=== PATIENT | male | born 2000 | race Caucasian/White ===

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

== ENCOUNTER → 2022-09-24 09:40 | Outpatient (BNVA) | payer MEDICAID, SELFPAY | PROVIDERS: Visit Provider Internal Medicine | DX: E10.65 Type 1 diabetes mellitus with hyperglycemia (principal); E11.10 Type 2 diabetes mellitus with ketoacidosis without coma; E03.9 Hypothyroidism, unspecified | CPT/HCPCS: 36415; 80053; 80061; 82044; 83036; 84439; 84443; 84480 ==

== ENCOUNTER → 2023-06-14 08:25 | Outpatient (BNVA) | payer MEDICAID, SELFPAY | PROVIDERS: Visit Provider Internal Medicine | DX: E03.9 Hypothyroidism, unspecified (principal); E10.10 Type 1 diabetes mellitus with ketoacidosis without coma; R74.01 Elevation of levels of liver transaminase levels; Z79.4 Long term (current) use of insulin; Z79.890 Hormone replacement therapy | CPT/HCPCS: 36415; 80053; 80061; 82044; 83036; 84439; 84443; 99214 ==

== ENCOUNTER 2023-06-26 12:22 | Emergency (ER) | payer MEDICAID, SELFPAY ==
[2023-06-26] VITALS (53 sets, daily range): BP systolic 111–122; BP diastolic 62–91; PULSE 76–109; RESP 7–24; TEMP 36.5; O2SAT 94–99; BMI 22.9
--- NOTE | 2023-06-26 12:17 | XRR_ITS ---
PROCEDURE INFORMATION: Exam: XR Chest Exam date and time: 06/26/2023 12:23 PM Age: 22 years old Clinical indication: Cough and dyspnea; Additional info: Dyspnea/cough TECHNIQUE: Imaging protocol: Radiologic exam of the chest. Views: 1 view. COMPARISON: CR XR chest 1V portable [id number] 05/19/2021 1:02 PM FINDINGS: Lungs: Unremarkable. No consolidation. Pleural spaces: Unremarkable. No pleural effusion. No pneumothorax. Heart/Mediastinum: Unremarkable. No cardiomegaly. Bones/joints: Unremarkable. XR/XR chest 1V portable [id number] IMPRESSION: No acute findings.
--- NOTE | 2023-06-26 12:17 | ECG_ITS ---
[facility] Test Date: 2023-06-26 Pat Name: Mukul Bean Department: Room: Gender: Male Credit Collections Manager: : 2000 Requested By: Aneudy Mtz Order Number: [id number] Demetrius MD: Prashant Gonzalez M.D. Measurements Intervals Emblem Rate: 87 P: 67 TX: 145 QRS: 61 QRSD: 92 T: 3 QT: 364 QTc: 440 Interpretive Statements SINUS RHYTHM POSSIBLE LEFT ATRIAL ENLARGEMENT [-0.1mV P-WAVE IN V1/V2] No previous ECG available for comparison Electronically Signed On 06-26-2023 13:56:58 WIRELESS SALES REPRESENTATIVE by Prashant Gonzalez M.D. [id number]
[2023-06-26 12:22] LABS: Glucose Point of Care 476 mg/dL (70-110)
[2023-06-26] MEDS: sodium chloride 0.9% 1,000 ML 999 ML IV ×2 (12:26→13:44)
[2023-06-26 12:33] LABS: Basophils % 0.7 %; Eosinophils % 0.7 %; Hematocrit 40.9 % (37-53); Lymphocytes # 1.6 10^3/uL (1.5-6.5); Lymphocytes % 39.9 %; Mean Corpuscular HGB Conc 35.9 g/dL (30-55); Mean Corpuscular Hemoglobin 31.6 pg (27-33); Mean Platelet Volume 9.8 fL (7.4-10.4); Monocytes # 0.4 10^3/uL (0.2-0.9); Monocytes % 9.7 %; Neutrophils # 1.97 10^3/uL (1.8-8.0); Neutrophils % 48.8 %; Nucleated Red Blood Cells % 0 %; Platelet Count 325 10^3/cmm (157-399); Red Blood Count 4.65 10^6/uL (3.85-5.65); Red Cell Distribution Width 11.1 % (12.1-15.1); White Blood Count 4.04 10^3/uL (4.5-13.0)
--- NOTE | 2023-06-26 12:37 | ED_ITS ---
HPI - Recheck/Abnormal Lab/Rx 2 General: Chief Complaint: Recheck/Abnormal Lab/Rx Stated Complaint: HIGH BLOOD SUGAR Source: patient Mode of arrival: EMS History of Present Illness: 22-year-old male presents to the emergen cy room with complaint of shortness of breath and chest discomfort. Patient was at work he has a markedly elevated blood sugar. He manages his blood sugar with as needed doses of NovoLog he says sometimes up to 10-12 or more per day he last took 1 this morning around 6 where he took 15 units of NovoLog Associated symptoms: none Review of Systems 2 Const: Denies: fever(s) or chills Card: Denies: chest pain Resp: Denies: dyspnea GI: Denies: abdominal pain : Denies: dysuria, urinary frequency or urinary urgency Musc: Denies: neck pain or back pain Skin/Breast: Denies: rash PFSH ED 2 PFSH: Medical History Diabetes Hypothyroid Hyperlipidemia Diabetes type 1, uncontrolled Surgical History No pertinent past surgical history Family History Other CAD (coronary artery disease) Cancer Diabetes Hypertension Social History Smoking and tobacco/nicotine status: current every day tobacco/nicotine user Physical Exam 2 Const: GENERAL APPEARANCE: cooperative and comfortable O RIENTATION/CONSCIOUSNESS: Yes awake, Yes oriented to person, Yes oriented to place and Yes oriented to time HENMT: COMMON NORMALS: normocephalic, atraumatic and hearing grossly normal bilaterally HEAD & SCALP: normocephalic and atraumatic Resp: COMMON NORMALS: normal respiratory effort, No retractions, No use of accessory muscles and clear to auscultation bilaterally AUSCULTATION: clear to auscultation bilaterally Cardio: COMMON NORMALS: regular rate, regular rhythm and No murmurs present (Cardio) RATE: regular rate RHYTHM: regular rhythm GI: COMMON NORMALS: Soft to palpation and No hepatosplenomegaly present A USCULTATION: Yes normoactive bowel sounds PALPATION: Yes Soft to palpation, No Tenderness to palpation present (GI), No Guarding due to palpation present (GI) and Yes No hepatosplenomegaly present Extremity: COMMON NORMALS: normal to inspection, capillary refill normal, no clubbing, cyanosis or edema, no calf tenderness and no pedal edema Neuro: SENSORIUM/ORIENTATION: Yes oriented to person, Yes oriented to place and Yes oriented to time Skin: COMMON NORMALS: no rashes or lesions noted GENERAL SKIN EXAM: no rashes or lesions noted Course 2 Vital Signs: Vital signs: Vital Signs Temperature 97.7 F 06/26/23 12:12 Pulse Rate 88 06/26/23 16:40 Respiratory Rate 17 06/26/23 16:40 Blood Pressure 119/70 06/26/23 16:40 Pulse Oximetry 95 06/26/23 16:40 Oxygen Delivery Me thod Room Air 06/26/23 12:40 MDM - Recheck/Abnormal Lab/Rx Medical Decision Making Blood sugars improved with fluids and insulin. Anion gap closed on repeat BMP. Patient states he is feeling much better. 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 Return if is further problems Medical Records I reviewed the patient's medical records. Lab Data I reviewed the patient's lab results. 06/26/23 12:20 06/26/23 15:16 Radiology Impressions Chest X-Ray 06/26/23 12:17 IMPRESSION: No acute findings. Laboratory Results WBC 4.04 10^3/uL (4.5-13.0) L 06/26/23 12:20 RBC 4.65 10^6/uL (3.85-5.65) 06/26/23 12:20 Hgb 14.70 g/dL (13.2-15.6) 06/26/23 12:20 Hct 40.9 % (37-53) 06/26/23 12:20 MCV 88.0 fl (82-101) 06/26/23 12:20 MCH 31.6 pg (27-33) 06/26/23 12:20 MCHC 35.9 g/dL (30-55) 06/26/23 12:20 RDW 11.1 % (12.1-15.1) L 06/26/23 12:20 Plt Count 325 10^3/cmm (157-399) 06/26/23 12:20 MPV 9.8 fL (7.4-10.4) 06/26/23 12:20 Neut % (Auto) 48.8 % 06/26/23 12:20 Lymph % (Auto) 39.9 % 06/26/23 12:20 [place] % (Auto) 9.7 % 06/26/23 12:20 Eos % (Auto) 0.7 % 06/26/23 12:20 Baso % (Auto) 0.7 % 06/26/23 12:20 Neut # (Auto) 1.97 10^3/uL (1.8-8.0) 06/26/23 12:20 Lymph # (Auto) 1.6 10^3/uL (1.5-6.5) 06/26/23 12:20 [place] # (Auto) 0.4 10^3/uL (0.2-0.9) 06/26/23 12:20 Eos # (Auto) 0.0 10^3/uL (0.0-0.8) 06/26/23 12:20 Baso # (Auto) 0.0 10^3/uL (0.0-0.1) 06/26/23 12:20 Nucleated RBC % (auto) 0 % 06/26/23 12:20 Nucleated RBCs # 0.0 /100WBC 06/26/23 12:20 Specimen Type Arterial 06/26/23 12:40 Sample Site Brachial, right 06/26/23 12:40 ABG pH 7.32 (7.35-7.45) L 06/26/23 12:40 ABG pCO2 45.6 mmHg (35-45) H 06/26/23 12:40 ABG pO2 76.1 mmHg (80.0-100.0) L 06/26/23 12:40 ABG HCO3 23.4 mmol/L (22-26) 06/26/23 12:40 ABG O2 Saturation 94.3 06/26/23 12:40 ABG Base Excess -3.0 mmol/L (-2.0-2.0) L 06/26/23 12:40 [place] Test N/a 06/26/23 12:40 A-a O2 Gradient 2.1 mmHg (5-10) L 06/26/23 12:40 Hematocrit 40.9 % (42-52) L 06/26/23 12:40 Hgb O2 Saturation 93.2 % (95-100) L 06/26/23 12:40 Carboxyhemoglobin 0.9 %THgb (0.4-20.1) 06/26/23 12:40 Methemoglobin 0.4 % (0.4-1.5) 06/26/23 12:40 Total Hemoglobin 13.3 g/dL (14-18) L 06/26/23 12:40 Sodium 138.0 mmol/L (131-143) 06/26/23 12:40 Potassium 3.3 mmol/L (3.5-5.0) L 06/26/23 12:40 Glucose 409.0 mg/dL (70-115) H 06/26/23 12:40 Ionized Calcium 1.0 mmol/L (1.1-1.4) L 06/26/23 12:40 O2 Delivery Device Room air 06/26/23 12:40 Firefighter ID Gd 06/26/23 12:40 Sodium 142 mmol/L (136-145) 06/26/23 15:16 Potassium 3.5 mmol/L (3.5-5.1) 06/26/23 15:16 Chloride 105 mmol/L (98-107) 06/26/23 15:16 Carbon Dioxide 20 mmol/L (22-29) L 06/26/23 15:16 Anion Gap 20.5 (5-19) H 06/26/23 15:16 BUN 11 mg/dL (6-20) 06/26/23 15:16 Creatinine 0.8 mg/dL (0.7-1.2) 06/26/23 15:16 GFR Calculation 123.2 mL/min (90-130) 06/26/23 15:16 Glucose 226 mg/dL (65-115) H 06/26/23 15:16 POC Glucose 183 mg/dL (70-110) H 06/26/23 15:47 Calculated Osmolality 300 mOsm/kg (285-295) H 06/26/23 15:16 Calcium 7.6 mg/dL (8.5-10.5) L 06/26/23 15:16 Urine Color Yellow (Yellow) 06/26/23 13:31 Urine Appearance Clear (CLEAR) 06/26/23 13:31 Urine pH 6 (5-7) 06/26/23 13:31 Ur Specific [place] 1.015 (1.005-1.030) 06/26/23 13:31 Urine Protein Neg (Negative) 06/26/23 13:31 Urine Glucose (UA) 4+ (Normal) H 06/26/23 13:31 Urine Ketones 2+ (Negative) H 06/26/23 13:31 Urine Blood Neg (Negative) 06/26/23 13:31 Urine Nitrate Negative (Negative) 06/26/23 13:31 Urine Bilirubin Neg (Negative) 06/26/23 13:31 Urine Urobilinogen Norm mg/dL (Negative) 06/26/23 13:31 Ur Leukocyte Esterase Negative (Negative) 06/26/23 13:31 Serum Ketones Negative (Negative) 06/26/23 12:20 All radiology interpretation(s) finalized by discharge Discharge Plan Discharge Patient Disposition: Home Clinical Impression: Diabetes type 1, uncontrolled, Acute hyperglycemia Condition: Stable Prescriptions: No Action (DME) Omnipod 5 G6 Pods (Gen 5) Cartridge See Rx Instructions .ROUTE .COMPLEX Qty: 45 0RF Dose Instruction: USE DIRECTED Rx Instructions: change pod every 2 days glucagon 1 mg recon soln 1 mg IM Q20M PRN (Reason: until target blood sugar attained) Qty: 1 3RF (DME) FreeStyle [place] 2 [place] Misc See Rx Instructions .Route Qty: 1 0RF Rx Instructions: Check BS 4-6 times a day. (DME) FreeStyle Sh[place] 2 Sensor Kit See Rx Instructions .Route Qty: 6 3RF Rx Instructions: Change every 14 days. Tresiba FlexTouch U-100 100 unit/mL (3 mL) insulin pen 38 unit SUBCUT QAM Qty: 15 3RF (DME) Dexcom G6 Transmitter Device See Rx Instructions .ROUTE .MEDSUPPLY Qty: 2 2RF Rx Instructions: change every 90 days (DME) Omnipod 5 G6 Intro Kit (Gen 5) Cartridge See Rx Instructions .ROUTE .MEDSUPPLY Qty: 1 0RF Rx Instructions: As directed insulin aspart U-100 [Novolog FlexPen U-100 Insulin] 100 unit/mL (3 mL) insulin pen 100 unit SUBCUT DAILY 90 Days Qty: 90 0RF (DME) Dexcom G6 Sensor Device See Rx Instructions .ROUTE .MEDSUPPLY Qty: 9 2RF Rx Instructions: change every 10 days levothyroxine 75 mcg tablet 75 mcg PO QAM Rx Instructions: 1 HOUR BEFORE BREAKFAST OR ANY OTHER MEDICATIONS. Discharge Orders: Discharge ED (Routine); Ordered 06/26/23 Ordered By: Aneudy Head Patient Instructions: Opioid Safety, Pain Management Coding Level of Care Code ED Escrow Officer for Carolyn Sandoval
[2023-06-26 12:44] LABS: Anion Gap 26.5 (5-19); Blood Urea Nitrogen 15 mg/dL (6-20); Calcium 9.1 mg/dL (8.5-10.5); Carbon Dioxide 20 mmol/L (22-29); Chloride 91 mmol/L (98-107); Glomerular Filtration Rate 123.2 mL/min (90-130); Glucose 459 mg/dL (65-115); Osmolality Calculated 299 mOsm/kg (285-295); Potassium 3.5 mmol/L (3.5-5.1); Sodium 134 mmol/L (136-145)
[2023-06-26 12:51] LABS: ABG PCO2 45.6 mmHg (35-45); ABG PH Result 7.32 (7.35-7.45); Alveolar-Arterial Oxygen Gradi 2.1 mmHg (5-10); Arterial Blood Gas Hematocrit 40.9 % (42-52); Blood Gas Sample Type Arterial; Carboxyhemoglobin 0.9 %THgb (0.4-20.1); HCO3 ABG 23.4 mmol/L (22-26); HGB O2 Sat 93.2 % (95-100); Methemoglobin 0.4 % (0.4-1.5); Oxygen Saturation ABG 94.3; PO2 ABG 76.1 mmHg (80.0-100.0); Potassium Level - ABG 3.3 mmol/L (3.5-5.0); Total Hemoglobin 13.3 g/dL (14-18)
[2023-06-26 12:57] LABS: Blood Gas Operator Identificat GD; Blood Gas Sample Site Brachial, right; Oxygen Device ROOM AIR
[2023-06-26 13:06] LABS: Ketone (Acetest) Serum Negative (Negative)
[2023-06-26 13:42] LABS: Glucose Point of Care 452 mg/dL (70-110)
[2023-06-26] MEDS: insulin regular-human 100 units/1 mL 10 UNIT IVP (13:45)
[2023-06-26 13:50] LABS: Add Urine Microscopic? NO; Charge for UA Resulting for Rev
[2023-06-26 14:03] LABS: Bilirubin Urine Neg (Negative); Blood Urine Neg (Negative); Glucose Urine UA 4+ (Normal); Ketones Urine 2+ (Negative); Leukocyte Esterase Urine Negative (Negative); Nitrate Urine Negative (Negative); Protein Urine Neg (Negative); Specific Gravity, Urine 1.015 (1.005-1.030); Urine Appearance Clear (CLEAR); Urine Color Yellow (Yellow); Urobilinogen Urine Norm (Negative); pH Urine 6 (5-7)
[2023-06-26 14:36] LABS: Glucose Point of Care 258 mg/dL (70-110)
[2023-06-26 15:49] LABS: Anion Gap 20.5 (5-19); Blood Urea Nitrogen 11 mg/dL (6-20); Calcium 7.6 mg/dL (8.5-10.5); Carbon Dioxide 20 mmol/L (22-29); Chloride 105 mmol/L (98-107); Glomerular Filtration Rate 123.2 mL/min (90-130); Glucose 226 mg/dL (65-115); Osmolality Calculated 300 mOsm/kg (285-295); Potassium 3.5 mmol/L (3.5-5.1); Sodium 142 mmol/L (136-145)
[2023-06-26 15:50] LABS: Glucose Point of Care 183 mg/dL (70-110)
== END 2023-06-26 17:03 | disposition home or self-care (01) ==
PROVIDERS: Emergency Provider Family Medicine
DX: E10.65 Type 1 diabetes mellitus with hyperglycemia (principal); Z79.4 Long term (current) use of insulin; Z72.0 Tobacco use; E78.5 Hyperlipidemia, unspecified
CPT/HCPCS: 36415; 36416; 36600; 71045; 80048; 80051; 81003; 82009; 82330; 82805; 82962; 85025; 93005; 96361; 96374; 99285; J1815; J7030

== ENCOUNTER → 2024-02-10 10:40 | Outpatient (BNVA) | payer MEDICAID, SELFPAY | PROVIDERS: Visit Provider Internal Medicine | DX: E10.65 Type 1 diabetes mellitus with hyperglycemia (principal); E03.9 Hypothyroidism, unspecified; R74.01 Elevation of levels of liver transaminase levels; Z79.4 Long term (current) use of insulin; Z79.890 Hormone replacement therapy | CPT/HCPCS: 80053; 80061; 82044; 83036; 84439; 84443; 99214 ==

== ENCOUNTER → 2024-07-31 11:06 | Outpatient (BNVA) | payer MEDICAID, SELFPAY | PROVIDERS: Visit Provider Internal Medicine | DX: E03.9 Hypothyroidism, unspecified (principal); E10.65 Type 1 diabetes mellitus with hyperglycemia; R74.01 Elevation of levels of liver transaminase levels | CPT/HCPCS: 36415; 80053; 80061; 82044; 83036; 84439; 84443 ==

== ENCOUNTER 2025-06-24 20:14 | Emergency (ER) | payer BC, SELFPAY ==
[2025-06-24 20:26] VITALS: BP 117/68; PULSE 84; RESP 16; TEMP 36.8; O2SAT 95; BMI 25.1
[2025-06-24 20:29] VITALS: BP 117/68; PULSE 84; RESP 16; TEMP 36.8; O2SAT 95
--- NOTE | 2025-06-24 20:59 | ED_ITS ---
Documented by User: ERNESTINE Donnelly 06/25/25 00:23 HPI - General Adult 2 General: Chief complaint: General Medical Stated complaint: Needs refill for Type 1 diabetic Time Seen by Provider: 06/24/25 20:32 Source: patient Mode of arrival: ambulatory Limitations: no limitations History of Present Illness: Patient is a 24-year-old male presents emergency department stating that he needs a refill for his insulin. He is a type I diabetic, states that he has not taken his insulin today, he has a pump but has ran out of the insulin. He states that at home it has been reading high, initially stated that he was just here to get the refill but with triage blood sugar read high so he is evaluated. He has no symptoms to report, no nausea or vomiting, no fevers, no abdominal pain, no other symptoms. His vitals are stable. He is nontoxic-appearing. MD complaint: Ran out of insulin, high blood sugar readings Associated symptoms: Deny chest pain, dyspnea, headache(s), nausea, rash, palpitations or vomiting Related Data Previous Rx's ?Medication ?Instructions ?Recorded glucagon 1 mg solution for 1 mg IM Q20M PRN until targ et 05/29/21 injection blood sugar attained #1 ea insulin glargine 100 unit/mL (3 10 unit (0.1 mL) SUBCU T ONCE #15 mL 02/10/24 mL) subcutaneous pen (Lantus Solostar U-100 Insulin) albuterol sulfate 90 mcg/actuation 2 inh inhalation Q6 H PRN shortness 05/08/24 aerosol inhaler of breath or wheezing #6.7 g micaela azithromycin 500 mg tablet 500 mg PO DAILY 5 days #5 t abs 05/08/24 (Zithromax) prednisone 20 mg tablet 60 mg (3 x 20 mg) PO DAILY 5 days 05/08/24 #15 tabs infusion set for insulin pump #10 ea 05/20/24 (MiniMed [place] Advance Infusion Set 23 ) insulin pump syringe 3 mL #10 ea 05/20/24 ([facility]) subcutaneous insulin pump (MiniMClickTale #1 ea 05/20/24 780G Insulin Pump) blood-glucose sensor (Dexcom G7 #3 ea 11/19/24 Sensor device) blood-glucose,biodiesel engineering manager,cont #1 ea 05/22/25 (Dexcom G7 Patient Financial Counselor) levothyroxine 88 mcg tablet See Rx Instructions .Route 11/24/24 .COMPLEX #30 tabs insulin lispro 100 unit/mL See Rx Instructions .Route 06/30/25 subcutaneous solution .COMPLEX #90 mL Allergies Allergy/AdvReac Type Severity Reaction Status Date / Time No Known Allergies Allergy Verified 10/29/24 08:35 Review of Systems 2 General: Reports: 10 or more systems reviewed and unremarkable except in HPI and below Const: Reports: other (Ran out of insulin, high blood sugar); Denies: fever(s), chills or fatigue Eyes: Denies: change in vision ENMT: Denies: throat pain, ear or mastoid pain or nasal discharge Card: Denies: chest pain, palpitations, swelling of feet/ankles or lightheadedness Resp: Denies: dyspnea, productive cough or wheezing GI: Denies: abdominal pain, nausea, vomiting, diarrhea or constipation : Denies: flank pain, difficulty urinating, dysuria or urinary frequency Musc: Denies: neck pain, back pain or joint pain Skin/Breast: Denies: rash Neuro: Denies: headache(s), numbness in extremities or weakness in extremities PFSH ED 2 PFSH: Medical History Diabetes Hypothyroid Hyperlipidemia Diabetes type 1, uncontrolled Surgical History No pertinent past surgical history Family History Other CAD (coronary artery disease) Cancer Diabetes Hypertension Social History Smoking and tobacco/nicotine status: never used tobacco/nicotine Physical Exam 2 Const: COMMON NORMALS: no acute distress, patient oriented x3 and no limitations GENERAL APPEARANCE: cooperative, comfortable and well developed ORIENTATION/CONSCIOUSNESS: Yes awake, Yes oriented to person, Yes oriented to place and Yes oriented to time HENMT: COMMON NORMALS: normocephalic, atraumatic and hearing grossly normal bilaterally HEAD & SCALP: normocephalic and atraumatic Eye: COMMON NORMALS: Equal, round and reactive pupils present, EOMs intact bilaterally and conjunctivae normal CONJUNCTIVA: Yes conjunctivae normal P UPIL: Yes Equal, round and reactive pupils present Neck/C-Spine: COMMON NORMALS: full ROM, supple and no JVD Resp: COMMON NORMALS: normal respiratory effort, No retractions, No use of accessory muscles and clear to auscultation bilaterally AUSCULTATION: clear to auscultation bilaterally Cardio: COMMON NORMALS: no JVD, regular rate, regular rhythm, No clicks present (Cardio), No murmurs present (Cardio) and No rub (Cardio) RATE: r egular rate RHYTHM: regular rhythm GI: COMMON NORMALS: Normal to inspection, nondistended, normoactive bowel sounds present, Soft to palpation and non-tender AUSCULTATION: Yes normoactive bowel sounds PALPATION: Yes Soft to palpation RECTAL EXAM: Yes deferred Extremity: COMMON NORMALS: normal to inspection, full ROM and capillary refill normal Neuro: COMMON NORMALS: patient oriented x3, moves all extremities, no focal motor deficits and no sensory deficits noted SENSORIUM/ORIENTATION: Yes oriented to person, Yes oriented to place and Yes oriented to time Skin: COMMON NORMALS: no rashes or lesions noted GENERAL SKIN EXAM: no rashes or lesions noted Course 2 Vital Signs: Vital signs: Vital Signs Temperature 98.2 F 06/24/25 20:29 Pulse Rate 84 06/24/25 20:29 Respiratory Rate 16 06/24/25 20:29 Blood Pressure 117/68 06/24/25 20:29 Pulse Oximetry 95 06/24/25 20:29 Oxygen Delivery Me thod Room Air 06/24/25 20:29 MDM - General Adult Medical Decision Making Patient presented for refill of his insulin, stating he had not been able to take it today and was not able to get to be refilled due to it being [place]. Arrived with high blood sugar readings with triage, CMP showing that his blood sugar 788. Fluids and insulin began, the rest of his lab work is reassuring his corrected sodium is 138, ABG unremarkable, he is not toxic nor is he acidotic, no leukocytosis, urine showing no signs of infection. He has not had any vomiting or abdominal pain here and vitals have been stable. Blood sugar dropped to below 300 and he will be allowed discharge home as he is safely able to refill his insulin tomorrow he tells me. Told to return with any vomiting, abdominal pain, or any other concerns. Lab Data 06/24/25 21:03 06/24/25 21:03 Laboratory Results WBC 4.47 10^3/uL (3.29-11.43) 06/24/25 21: RBC 4.71 10^6/uL (3.85-5.65) 06/24/25 21:03 Hgb 14.30 g/dL (11.27-16.99) 06/24/25: Hct 42.5 % (37-53) 06/24/25: MCV 90.2 fl (82-101) 06/24/25: MCH 30.4 pg (27-33) 06/24/25: MCHC 33.6 g/dL (30-55) 06/24/25: RDW 11.8 % (12.1-15.1) L 06/24/25: Plt Count 270 10^3/cmm (157-399) 06/24/25: MPV 10.0 fL (7.4-10.4) 06/24/25 21: Neut % (Auto) 52.0 % 06/24/25 21: Lymph % (Auto) 35.3 % 06/24/25: [place] % (Auto) 7.8 % 06/24/25: Eos % (Auto) 3.1 % 06/24/25: Baso % (Auto) 1.6 % 06/24/25: Neut # (Auto) 2.32 10^3/uL (1.8-7.7) 06/24/25: Lymph # (Auto) 1.6 10^3/uL (0.8-4.8) 06/24/25 21: [place] # (Auto) 0.4 10^3/uL (0.2-0.9) 06/24/25: Eos # (Auto) 0.1 10^3/uL (0.0-0.8) 06/24/25 21: Baso # (Auto) 0.1 10^3/uL (0.0-0.1) 06/24/25 21:03 Nucleated RBC % (auto) 0 % 12/25/25 21:03 Nucleated RBCs # 0.0 /100WBC 06/24/25 21:03 Specimen Type Arterial 06/24/25: Sample Site Brachial, right 06/24/25 22:25 ABG pH 7.38 (7.35-7.45) 06/24/25 22: ABG pCO2 42.1 mmHg (35-45) 06/24/25: ABG pO2 89.0 mmHg (80.0-100.0) 06/24/25: ABG PO2/FiO2 Ratio 423 06/24/25: ABG HCO3 24.9 mmol/L (22-26) 06/24/25: ABG O2 Saturation 96.8 06/24/25: ABG Base Excess -0.3 mmol/L (-2.0-2.0) 06/24/25: Usama Test Pos 06/24/25: A-a O2 Gradient 1.0 mmHg (5-10) L 06/24/25: Hematocrit 43.9 % (42-52) 06/24/25: Hgb O2 Saturation 95.1 % (95-100) 06/24/25: Carboxyhemoglobin 0.7 %THgb (0.4-20.1) 06/24/25: Methemoglobin 1.0 % (0.4-1.5) 06/24/25: Total Hemoglobin 14.3 g/dL (14-18) 06/24/25 22: Sodium 134.0 mmol/L (131-143) 06/24/25: Potassium 3.5 mmol/L (3.5-5.0) 06/24/25 22: Glucose 547.0 mg/dL (70-115) H 06/24/25: Ionized Calcium 1.2 mmol/L (1.1-1.4) 06/24/25: O2 Delivery Device None 06/24/25 22:25 FiO2 21.0 % 06/24/25 22:25 Hydrodynamics Teacher ID Bd 06/24/25 22: Sodium 126 mmol/L (136-145) L 06/24/25 21:03 Potassium 4.4 mmol/L (3.5-5.1) 06/24/25 21:03 Chloride 87 mmol/L (98-107) L 06/24/25 21:03 Carbon Dioxide 21 mmol/L (22-29) L 06/24/25 21:03 Anion Gap 22.4 (5-19) H 06/24/25 21:03 BUN 22 mg/dL (6-20) H 06/24/25 21:03 Creatinine 1.0 mg/dL (0.7-1.2) 06/24/25 21:03 GFR Calculation 93.4 mL/min (90-130) 06/24/25 21:03 Glucose 788 mg/dL (65-115) H* 06/24/25 21:03 POC Glucose 245 mg/dL (70-110) H 06/25/25 01:10 Calculated Osmolality 304 mOsm/kg (285-295) H 06/24/25 21:03 Calcium 9.2 mg/dL (8.5-10.5) 06/24/25 21:03 Total Bilirubin 0.8 mg/dL (0.15-1.2) 06/24/25 21:03 AST 17 U/L (0-40) 06/24/25 21:03 ALT 23 U/L (0-41) 06/24/25 21:03 Alkaline Phosphatase 142 U/L (40-130) H 06/24/25 21:03 Total Protein 7.0 g/dL (6.6-8.7) 06/24/25 21:03 Albumin 4.5 g/dL (3.5-5.2) 06/24/25 21: Globulin 2.5 g/dL (1.3-4.6) 06/24/25 21:03 Urine Color Yellow (Yellow) 06/24/25 20:57 Urine Appearance Clear (CLEAR) 06/24/25 20:57 Urine pH 5.5 (5-7) 06/24/25 20:57 Ur Specific [place] 1.031 (1.005-1.030) H 06/24/25 20: Urine Protein Negative (Negative) 06/24/25 20: Urine Glucose (UA) 3+ (Normal) H 06/24/25 20:57 Urine Ketones 1+ (Negative) H 06/24/25 20:57 Urine Blood Negative (Negative) 06/24/25 20:57 Urine Nitrate Negative (Negative) 06/24/25 20:57 Urine Bilirubin Negative (Negative) 06/24/25 20:57 Urine Urobilinogen 0.2 mg/dL (Negative) 06/24/25 20:57 Ur Leukocyte Esterase Negative (Negative) 06/24/25 20:57 Urine RBC 0-2 /hpf (0-2) 06/24/25 20:57 Urine WBC 0-5 /hpf (0-5) 06/24/25 20:57 Ur Squamous Epith Cells 0-5 /hpf (0-5) 06/24/25 20:57 Amorphous Sediment Not Reportable 06/24/25 20:57 Urine Bacteria None seen /hpf (NONE) 06/24/25 20:57 Hyaline Casts 0-4 /lpf H 06/24/25 20:57 Serum Ketones Negative (Negative) 06/24/25 21:03 No radiology studies performed this visit Discharge Plan Discharge Patient Disposition: Home Clinical Impression: Hyperglycemia due to type 1 diabetes mellitus Condition: Stable Prescriptions: No Action insulin glargine [Lantus Solostar U-100 Insulin] 100 unit/mL (3 mL) insulin pen 10 unit SUBCUT ONCE Qty: 15 0RF albuterol sulfate 90 mcg/actuation HFA aerosol inhaler 2 inh inhalation Q6H PRN (Reason: shortness of breath or wheezing) Qty: 6.7 0RF Rx Instructions: dispense with spacer prednisone 20 mg tablet 60 mg PO DAILY 5 Days Qty: 15 0RF azithromycin [Zithromax] 500 mg tablet 500 mg PO DAILY 5 Days Qty: 5 0RF glucagon 1 mg recon soln 1 mg IM Q20M PRN (Reason: until target blood sugar attained) Qty: 1 3RF (DME) MiniMed 780G Insulin Pump Misc See Rx Instructions .Route Qty: 1 0RF Rx Instructions: As directed ([facility]) MiniMed [place] Advance Inf Set23 Infusion Set See Rx Instructions .Route Qty: 10 0RF Rx Instructions: As directed ([facility]) [facility] 3 mL misc See Rx Instructions .Route Qty: 10 0RF Rx Instructions: As directed (DME) Dexcom G7 Sensor Device See Rx Instructions .ROUTE .MEDSUPPLY Qty: 3 2RF Rx Instructions: change every 10 days (DME) Dexcom G7 Patient Financial Counselor Misc See Rx Instructions .ROUTE .MEDSUPPLY Qty: 1 1RF Rx Instructions: As directed levothyroxine 88 mcg tablet See Rx Instructions .ROUTE .COMPLEX Qty: 30 0RF Dose Instruction: TAKE 1 TABLET BY MOUTH DAILY Rx Instructions: TAKE 1 TABLET BY MOUTH DAILY insulin lispro 100 unit/mL solution See Rx Instructions .ROUTE .COMPLEX Qty: 90 0RF Dose Instruction: INJECT 100 UNITS DAILY VIA INSULIN PUMP Rx Instructions: INJECT 100 UNITS DAILY VIA INSULIN PUMP Discharge Orders: Discharge ED (Routine); Ordered 06/25/25 Ordered By: Prabhjot Mckeon Patient Instructions: Patient Portal & Sonia Instructions Activity Restrictions/Additional Instructions: Discharge Instructions for Type 1 Diabetes with Hyperglycemia DISCHARGE INSTRUCTIONS Diagnosis: Hyperglycemia (high blood sugar) due to missed insulin doses Date: June 25, 2025 What Happened: You came to the hospital today because you ran out of insulin and were unable to refill your prescription due to the holiday. Your blood sugar was very high at 788 mg/dL (normal is 80-130 mg/dL before meals). We treated you with insulin and intravenous fluids, and your blood sugar has improved. You did not develop diabetic ketoacidosis (DKA), which is a serious complication. Medications: - Resume your regular insulin regimen immediately - Take your long-acting (basal) insulin as prescribed every day, even if you are not eating - Take your rapid-acting (mealtime) insulin before each meal as prescribed - Never skip or run out of insulin - this is life-threatening for people with type 1 diabetes Important Instructions: 1. Check your blood sugar regularly: - Check at least 4 times daily (before meals and at bedtime) - Check more often if you feel unwell or your sugars are running high 2. Never let your insulin run out again: - Keep track of how much insulin you have left - Refill prescriptions at least 1 week before you run out - Keep an emergency supply if possible - Call your doctor or pharmacy if you cannot afford your insulin - assistance programs are available 3. Stay hydrated: - Drink plenty of water, especially if your blood sugar is elevated - Aim for at least 8 glasses of water per day WARNING SIGNS - Seek Immediate Medical Attention If You Experience: - Blood sugar over 250 mg/dL that doesn't come down with insulin - Nausea or vomiting - Abdominal pain - Excessive thirst or urination - Fruity-smelling breath - Rapid breathing or shortness of breath - Confusion or difficulty staying awake - Inability to keep down fluids When to Check for Ketones: If your blood sugar is over 200 mg/dL and you have any of the above symptoms, check your urine or blood ketones (if you have ketone testing supplies). If ketones are present, call your doctor immediately or go to the emergency department. Follow-Up Care: - You must see your primary care doctor or fur designer within 1-2 weeks - Call tomorrow to schedule this appointment - Bring your blood sugar log to your appointment Emergency Contact: - If you cannot afford your insulin or have trouble getting your prescriptions filled, call your doctor's office immediately - If you develop any warning signs listed above, go to the emergency department or call 911 Remember: Type 1 diabetes requires insulin every single day to stay alive. Missing even one day of insulin can be life-threatening. If you ever have trouble getting your insulin, go to the emergency department - do not wait. Print Language: Gibraltarian Coding Level of Care Code ED Brush Trimming Machine Setter for Chg Fwd Documented by User: Estevan Grayson, DO 07/02/25 17:56 HPI - General Adult 2 General: Chief complaint: General Medical Stated complaint: Needs refill for Type 1 diabetic Time Seen by Provider: 06/24/25 20:32 Related Data Previous Rx's ?Medication ?Instructions ?Recorded glucagon 1 mg solution for 1 mg IM Q20M PRN until targ et 05/29/21 injection blood sugar attained #1 ea insulin glargine 100 unit/mL (3 10 unit (0.1 mL) SUBCU T ONCE #15 mL 02/10/24 mL) subcutaneous pen (Lantus Solostar U-100 Insulin) albuterol sulfate 90 mcg/actuation 2 inh inhalation Q6 H PRN shortness 05/08/24 aerosol inhaler of breath or wheezing #6.7 g micaela azithromycin 500 mg tablet 500 mg PO DAILY 5 days #5 t abs 05/08/24 (Zithromax) prednisone 20 mg tablet 60 mg (3 x 20 mg) PO DAILY 5 days 05/08/24 #15 tabs infusion set for insulin pump #10 ea 05/20/24 ([facility] [place] Advance Infusion Set 23 ) insulin pump syringe 3 mL #10 ea 05/20/24 ([facility]) subcutaneous insulin pump (MiniMed #1 ea 05/20/24 780G Insulin Pump) blood-glucose sensor (Dexcom G7 #3 ea 11/19/24 Sensor device) blood-glucose,biodiesel engineering manager,cont #1 ea 11/19/24 (Dexcom G7 Patient Financial Counselor) levothyroxine 88 mcg tablet See Rx Instructions .Route 11/24/24 .COMPLEX #30 tabs insulin lispro 100 unit/mL See Rx Instructions .Route 06/30/25 subcutaneous solution .COMPLEX #90 mL Allergies Allergy/AdvReac Type Severity Reaction Status Date / Time No Known Allergies Allergy Verified 10/29/24 08:35 PFS ED 2 [facility]: Medical History Diabetes Hypothyroid Hyperlipidemia Diabetes type 1, uncontrolled Surgical History No pertinent past surgical history Family History Other CAD (coronary artery disease) Cancer Diabetes Hypertension Social History Smoking and tobacco/nicotine status: never used tobacco/nicotine Course 2 Vital Signs: Vital signs: Vital Signs Temperature 98.2 F 06/24/25 20:29 Pulse Rate 84 06/24/25 20:29 Respiratory Rate 16 06/24/25 20:29 Blood Pressure 117/68 06/24/25 20:29 Pulse Oximetry 95 06/24/25 20:29 Oxygen Delivery Me thod Room Air 06/24/25 20:29 MDM - General Adult Medical Decision Making Patient presented for refill of his insulin, stating he had not been able to take it today and was not able to get to be refilled due to it being [place]. Arrived with high blood sugar readings with triage, CMP showing that his blood sugar 788. Fluids and insulin began, the rest of his lab work is reassuring his corrected sodium is 138, ABG unremarkable, he is not toxic nor is he acidotic, no leukocytosis, urine showing no signs of infection. He has not had any vomiting or abdominal pain here and vitals have been stable. Blood sugar dropped to below 300 and he will be allowed discharge home as he is safely able to refill his insulin tomorrow he tells me. Told to return with any vomiting, abdominal pain, or any other concerns. This patient was originally seen by Mr. Linda PA-C. I agree with his history, evaluation, and management Lab Data 06/24/25 21:03 06/24/25 21: Laboratory Results WBC 4.47 10^3/uL (3.29-11.43) 06/24/25: RBC 4.71 10^6/uL (3.85-5.65) 06/24/25 21: Hgb 14.30 g/dL (11.27-16.99) 06/24/25 21: Hct 42.5 % (37-53) 06/24/25: MCV 90.2 fl (82-101) 06/24/25 21: MCH 30.4 pg (27-33) 06/24/25 21: MCHC 33.6 g/dL (30-55) 06/24/25 21: RDW 11.8 % (12.1-15.1) L 06/24/25 21: Plt Count 270 10^3/cmm (157-399) 06/24/25 21: MPV 10.0 fL (7.4-10.4) 06/24/25 21: Neut % (Auto) 52.0 % 06/24/25 21: Lymph % (Auto) 35.3 % 06/24/25 21:03 [place] % (Auto) 7.8 % 06/24/25 21: Eos % (Auto) 3.1 % 06/24/25 21: Baso % (Auto) 1.6 % 06/24/25 21: Neut # (Auto) 2.32 10^3/uL (1.8-7.7) 06/24/25 21: Lymph # (Auto) 1.6 10^3/uL (0.8-4.8) 06/24/25 21:03 [place] # (Auto) 0.4 10^3/uL (0.2-0.9) 06/24/25 21:03 Eos # (Auto) 0.1 10^3/uL (0.0-0.8) 06/24/25 21:03 Baso # (Auto) 0.1 10^3/uL (0.0-0.1) 06/24/25 21:03 Nucleated RBC % (auto) 0 % 06/24/25 21:03 Nucleated RBCs # 0.0 /100WBC 06/24/25 21:03 Specimen Type Arterial 06/24/25 22: Sample Site Brachial, right 06/24/25 22:25 ABG pH 7.38 (7.35-7.45) 06/24/25: ABG pCO2 42.1 mmHg (35-45) 06/24/25: ABG pO2 89.0 mmHg (80.0-100.0) 06/24/25: ABG PO2/FiO2 Ratio 423 06/24/25: ABG HCO3 24.9 mmol/L (22-26) 06/24/25: ABG O2 Saturation 96.8 06/24/25: ABG Base Excess -0.3 mmol/L (-2.0-2.0) 06/24/25: Usama Test Pos 06/24/25: A-a O2 Gradient 1.0 mmHg (5-10) L 06/24/25: Hematocrit 43.9 % (42-52) 06/24/25: Hgb O2 Saturation 95.1 % (95-100) 06/24/25 22: Carboxyhemoglobin 0.7 %THgb (0.4-20.1) 06/24/25 22: Methemoglobin 1.0 % (0.4-1.5) 06/24/25 22: Total Hemoglobin 14.3 g/dL (14-18) 06/24/25 22: Sodium 134.0 mmol/L (131-143) 06/24/25 22: Potassium 3.5 mmol/L (3.5-5.0) 06/24/25 22: Glucose 547.0 mg/dL (70-115) H 06/24/25 22:25 Ionized Calcium 1.2 mmol/L (1.1-1.4) 06/24/25 22:25 O2 Delivery Device None 06/24/25 22:25 FiO2 21.0 % 06/24/25 22:25 Hydrodynamics Teacher ID Bd 06/24/25 22:25 Sodium 126 mmol/L (136-145) L 06/24/25 21:03 Potassium 4.4 mmol/L (3.5-5.1) 06/24/25 21:03 Chloride 87 mmol/L (98-107) L 06/24/25 21:03 Carbon Dioxide 21 mmol/L (22-29) L 06/24/25 21:03 Anion Gap 22.4 (5-19) H 06/24/25 21:03 BUN 22 mg/dL (6-20) H 06/24/25 21:03 Creatinine 1.0 mg/dL (0.7-1.2) 06/24/25 21:03 GFR Calculation 93.4 mL/min (90-130) 06/24/25 21:03 Glucose 788 mg/dL (65-115) H* 06/24/25 21:03 POC Glucose 245 mg/dL (70-110) H 06/25/25 01:10 Calculated Osmolality 304 mOsm/kg (285-295) H 06/24/25 21:03 Calcium 9.2 mg/dL (8.5-10.5) 06/24/25 21:03 Total Bilirubin 0.8 mg/dL (0.15-1.2) 06/24/25 21:03 AST 17 U/L (0-40) 06/24/25 21:03 ALT 23 U/L (0-41) 06/24/25 21:03 Alkaline Phosphatase 142 U/L (40-130) H 06/24/25 21:03 Total Protein 7.0 g/dL (6.6-8.7) 06/24/25 21:03 Albumin 4.5 g/dL (3.5-5.2) 06/24/25 21:03 Globulin 2.5 g/dL (1.3-4.6) 06/24/25 21:03 Urine Color Yellow (Yellow) 06/24/25 20:57 Urine Appearance Clear (CLEAR) 06/24/25 20:57 Urine pH 5.5 (5-7) 06/24/25 20:57 Ur Specific [place] 1.031 (1.005-1.030) H 06/24/25 20:57 Urine Protein Negative (Negative) 06/24/25 20:57 Urine Glucose (UA) 3+ (Normal) H 06/24/25 20:57 Urine Ketones 1+ (Negative) H 06/24/25 20:57 Urine Blood Negative (Negative) 06/24/25 20:57 Urine Nitrate Negative (Negative) 06/24/25 20:57 Urine Bilirubin Negative (Negative) 06/24/25 20:57 Urine Urobilinogen 0.2 mg/dL (Negative) 06/24/25 20:57 Ur Leukocyte Esterase Negative (Negative) 06/24/25 20:57 Urine RBC 0-2 /hpf (0-2) 06/24/25 20:57 Urine WBC 0-5 /hpf (0-5) 06/24/25 20:57 Ur Squamous Epith Cells 0-5 /hpf (0-5) 06/24/25 20:57 Amorphous Sediment Not Reportable 06/24/25 20:57 Urine Bacteria None seen /hpf (NONE) 06/24/25 20:57 Hyaline Casts 0-4 /lpf H 06/24/25 20:57 Serum Ketones Negative (Negative) 06/24/25 21:03 Discharge Plan Discharge Patient Disposition: Home Clinical Impression: Hyperglycemia due to type 1 diabetes mellitus Condition: Stable Prescriptions: No Action insulin glargine [Lantus Solostar U-100 Insulin] 100 unit/mL (3 mL) insulin pen 10 unit SUBCUT ONCE Qty: 15 0RF albuterol sulfate 90 mcg/actuation HFA aerosol inhaler 2 inh inhalation Q6H PRN (Reason: shortness of breath or wheezing) Qty: 6.7 0RF Rx Instructions: dispense with spacer prednisone 20 mg tablet 60 mg PO DAILY 5 Days Qty: 15 0RF azithromycin [Zithromax] 500 mg tablet 500 mg PO DAILY 5 Days Qty: 5 0RF glucagon 1 mg recon soln 1 mg IM Q20M PRN (Reason: until target blood sugar attained) Qty: 1 3RF (DME) MiniMed 780G Insulin Pump Misc See Rx Instructions .Route Qty: 1 0RF Rx Instructions: As directed (DME) MiniMed [place] Advance Inf Set23 Infusion Set See Rx Instructions .Route Qty: 10 0RF Rx Instructions: As directed (DME) [facility] 3 mL misc See Rx Instructions .Route Qty: 10 0RF Rx Instructions: As directed (DME) Dexcom G7 Sensor Device See Rx Instructions .ROUTE .MEDSUPPLY Qty: 3 2RF Rx Instructions: change every 10 days (DME) Dexcom G7 Patient Financial Counselor Misc See Rx Instructions .ROUTE .MEDSUPPLY Qty: 1 1RF Rx Instructions: As directed levothyroxine 88 mcg tablet See Rx Instructions .ROUTE .COMPLEX Qty: 30 0RF Dose Instruction: TAKE 1 TABLET BY MOUTH DAILY Rx Instructions: TAKE 1 TABLET BY MOUTH DAILY insulin lispro 100 unit/mL solution See Rx Instructions .ROUTE .COMPLEX Qty: 90 0RF Dose Instruction: INJECT 100 UNITS DAILY VIA INSULIN PUMP Rx Instructions: INJECT 100 UNITS DAILY VIA INSULIN PUMP Discharge Orders: Discharge ED (Routine); Ordered 06/25/25 Ordered By: Prabhjot Mckeon Patient Instructions: Patient Portal & Sonia Instructions Activity Restrictions/Additional Instructions: Discharge Instructions for Type 1 Diabetes with Hyperglycemia DISCHARGE INSTRUCTIONS Diagnosis: Hyperglycemia (high blood sugar) due to missed insulin doses Date: June 25, 2025 What Happened: You came to the hospital today because you ran out of insulin and were unable to refill your prescription due to the holiday. Your blood sugar was very high at 788 mg/dL (normal is 80-130 mg/dL before meals). We treated you with insulin and intravenous fluids, and your blood sugar has improved. You did not develop diabetic ketoacidosis (DKA), which is a serious complication. Medications: - Resume your regular insulin regimen immediately - Take your long-acting (basal) insulin as prescribed every day, even if you are not eating - Take your rapid-acting (mealtime) insulin before each meal as prescribed - Never skip or run out of insulin - this is life-threatening for people with type 1 diabetes Important Instructions: 1. Check your blood sugar regularly: - Check at least 4 times daily (before meals and at bedtime) - Check more often if you feel unwell or your sugars are running high 2. Never let your insulin run out again: - Keep track of how much insulin you have left - Refill prescriptions at least 1 week before you run out - Keep an emergency supply if possible - Call your doctor or pharmacy if you cannot afford your insulin - assistance programs are available 3. Stay hydrated: - Drink plenty of water, especially if your blood sugar is elevated - Aim for at least 8 glasses of water per day WARNING SIGNS - Seek Immediate Medical Attention If You Experience: - Blood sugar over 250 mg/dL that doesn't come down with insulin - Nausea or vomiting - Abdominal pain - Excessive thirst or urination - Fruity-smelling breath - Rapid breathing or shortness of breath - Confusion or difficulty staying awake - Inability to keep down fluids When to Check for Ketones: If your blood sugar is over 200 mg/dL and you have any of the above symptoms, check your urine or blood ketones (if you have ketone testing supplies). If ketones are present, call your doctor immediately or go to the emergency department. Follow-Up Care: - You must see your primary care doctor or fur designer within 1-2 weeks - Call tomorrow to schedule this appointment - Bring your blood sugar log to your appointment Emergency Contact: - If you cannot afford your insulin or have trouble getting your prescriptions filled, call your doctor's office immediately - If you develop any warning signs listed above, go to the emergency department or call 911 Remember: Type 1 diabetes requires insulin every single day to stay alive. Missing even one day of insulin can be life-threatening. If you ever have trouble getting your insulin, go to the emergency department - do not wait. Print Language: [place] Coding Level of Care Code ED Brush Trimming Machine Setter for Carolny Sandoval
[2025-06-24 21:07] LABS: Glucose Urine UA 3+ (Normal); Nitrate Urine Negative (Negative)
[2025-06-24 21:09] LABS: Add Urine Microscopic? YES
[2025-06-24 21:13] LABS: Specific Gravity, Urine 1.031 (1.005-1.030)
[2025-06-24 21:15] LABS: Hematocrit 42.5 % (37-53); Hemoglobin 14.30 g/dL (11.27-16.99); Mean Corpuscular HGB Conc 33.6 g/dL (30-55); Mean Corpuscular Hemoglobin 30.4 pg (27-33); Mean Corpuscular Volume 90.2 fl (82-101); Nucleated Red Blood Cells % 0 %; Platelet Count 270 10^3/cmm (157-399); Red Blood Count 4.71 10^6/uL (3.85-5.65); White Blood Count 4.47 10^3/uL (3.29-11.43)
[2025-06-24 21:17] LABS: Ketone (Acetest) Serum Negative (Negative)
[2025-06-24 21:27] LABS: Alanine Aminotransferase 23 U/L (0-41); Albumin Level 4.5 g/dL (3.5-5.2); Alkaline Phosphatase 142 U/L (40-130); Anion Gap 22.4 (5-19); Aspartate Amino Transferase 17 U/L (0-40); Blood Urea Nitrogen 22 mg/dL (6-20); Calcium 9.2 mg/dL (8.5-10.5); Carbon Dioxide 21 mmol/L (22-29); Chloride 87 mmol/L (98-107); Globulin 2.5 g/dL (1.3-4.6); Potassium 4.4 mmol/L (3.5-5.1); Sodium 126 mmol/L (136-145); Total Protein 7.0 g/dL (6.6-8.7)
[2025-06-24] MEDS: insulin regular-human 100 units/1 mL 10 UNIT IVP (21:29)
[2025-06-24 21:36] LABS: Osmolality Calculated 304 mOsm/kg (285-295)
[2025-06-24 21:47] LABS: Glucose 788 mg/dL (65-115)
[2025-06-24 22:34] LABS: ABG PCO2 42.1 mmHg (35-45); ABG PH Result 7.38 (7.35-7.45); Alveolar-Arterial Oxygen Gradi 1.0 mmHg (5-10); Arterial Blood Gas Hematocrit 43.9 % (42-52); Blood Gas Allen Test Pos; Blood Gas Operator Identificat BD; Blood Gas Sample Site Brachial, right; Blood Gas Sample Type Arterial; Carboxyhemoglobin 0.7 %THgb (0.4-20.1); Glucose Level-ABG 547.0 mg/dL (70-115); HCO3 ABG 24.9 mmol/L (22-26); Ionized Calcium Level - ABG 1.2 mmol/L (1.1-1.4); Methemoglobin 1.0 % (0.4-1.5); Oxygen Saturation ABG 96.8; PO2 ABG 89.0 mmHg (80.0-100.0); PO2 FiO2 Ratio Arterial Blood 423; Potassium Level - ABG 3.5 mmol/L (3.5-5.0); Sodium Level - ABG 134.0 mmol/L (131-143)
[2025-06-24] MEDS: insulin regular-human 100 units/1 mL 12 UNIT IVP (23:37)
== END 2025-06-25 01:36 | disposition home or self-care (01) ==
PROVIDERS: Emergency Provider Physician Assistant
DX: E10.65 Type 1 diabetes mellitus with hyperglycemia (principal); E78.5 Hyperlipidemia, unspecified
CPT/HCPCS: 36415; 36416; 36600; 80051; 80053; 81001; 82009; 82330; 82805; 82962; 85025; 96374; 96375; 99284; J1815; J7030